=== PATIENT | male | born 1990 | race African-American/Black ===

== ENCOUNTER 2022-01-06 13:24 | Emergency (ER) | payer OTHER, SELFPAY ==
[2022-01-06 13:40] VITALS: BP 123/78; PULSE 72; RESP 18; TEMP 36.1; O2SAT 99
--- NOTE | 2022-01-06 13:47 | ED.WOUNDLAC ---
HPI - Wound/Laceration General Chief Complaint: Wound/Laceration Stated Complaint: finger injury Time Seen by Provider: 01/06/22 13:48 Source: patient Mode of arrival: ambulatory Limitations: no limitations History of Present Illness HPI narrative: Jimmy Maria is a 31 yo male with no PMH who comes to express care with a vertical laceration of dorsum R third finger- about 3 cm in length- denies pain. Hand is dirty and is soaking for better assessment of wound Related Data Allergies Allergy/AdvReac Type Severity Reaction Status Date / Time No Known Allergies Allergy Verified 01/06/22 13:44 Review of Systems Review of Systems: CONSTITUTIONAL: Denies fever, chills, sweats. EYES: Denies visual changes, redness, discharge. ENT: Denies rhinorrhea, congestion, sore throat, otalgia. CARDIOVASCULAR: Denies chest pain, palpitations, edema. RESPIRATORY: Denies dyspnea, wheezing, cough GASTROINTESTINAL: Denies abdominal pain, nausea, vomiting, diarrhea. GENITOURINARY: Denies dysuria, hematuria, abnormal discharge SKIN: Denies rash or itching. Laceration on the dorsum of third finger through the proximal joint, multiple slotted abrasions on the palmar side, small abrasion to base of cuticles of third finger and second finger NEUROLOGIC: Denies numbness, or focal weakness. PSYCHIATRIC: Denies anxiety or depression. 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 There is no relevant family history pertinent to the presenting complaint. Exam Narrative: GENERAL: This is a well-nourished, well-developed patient, in mild distress. HEAD: normocephalic, atraumatic. EYES: PERRL. Sclera clear/white. Vision is grossly intact. EARS: External ears normal, auditory canals clear and without drainage, TMs normal without perforation. Hearing grossly intact. NOSE: External nose normal without nasal discharge, nares without redness, no rhinorrhea. THROAT: Mucous membranes moist, posterior pharynx NECK: Neck supple, non-tender CARDIOVASCULAR: Regular rate and rhythm without murmurs, gallops, or rubs. RESPIRATORY: Clear to auscultation. Breath sounds equal bilaterally. No wheezes, rales, or rhonchi. GASTROINTESTINAL: Abdomen soft, non-tender, SKIN: warm, intact with no suspicious lesions or rash, good texture and turgor. 3 cm laceration through the dorsum of third finger across proximal joint with slated abrasion on the palmar side matching of the laceration there is also a small avulsion at the base of the third finger at the nail bed also of the second finger NEURO: awake, alert, and oriented to person, place and time. There were no obvious focal neurologic abnormalities. Steady gait EXTREMITIES: Normal range of motion. BACK: Nontender without deformity Course Course Emergency Course: Laceration repair to the third finger of the right hand with splint placed by tech - neurovascularly intact post placement. Tetanus immunization and antibiotic/pain medication prescribed, work note explaining the meds given also Level of Care: Express Care Visit Vital Signs Vital signs: Vital Signs Temperature 97.0 F L 01/06/22 13:40 Pulse Rate 72 01/06/22 13:40 Respiratory Rate 18 01/06/22 13:40 Blood Pressure 123/78 01/06/22 13:40 Pulse Oximetry 99 01/06/22 13:40 Temperature 97.0 F L 01/06/22 13:40 Pulse Rate 72 01/06/22 13:40 Respiratory Rate 18 01/06/22 13:40 Blood Pressure 123/78 01/06/22 13:40 Pulse Oximetry 99 01/06/22 13:40 Procedures Laceration Laceration 1: Date: 01/06/22 Time: 14:30 Site: hand Side (If applicable): right Size (cm): 3 Description: linear Local Ane
[2022-01-06] MEDS: TETANUS,DIPHTHERIA,AC PERTUSSIS ADULT (0.5 ML) BOOSTRIX IM (14:21)
== END 2022-01-06 15:04 | disposition home or self-care (01) ==
PROVIDERS: Emergency Provider Nurse Practitioner
DX: S61.212A Laceration without foreign body of right middle finger without damage to nail, initial encounter (principal); Z23 Encounter for immunization; W45.8XXA Other foreign body or object entering through skin, initial encounter
CPT/HCPCS: 12002; 90471; 90715; 99203; G0463